=== PATIENT | female | born 1965 | race Caucasian/White ===

== ENCOUNTER 2017-08-28 06:34 | Day surgery (SDC) | payer BC ==
[~2017-08-28] VITALS: Ht 162.6 cm; Wt 65.8 kg
[2017-08-28] VITALS (8 sets, daily range): BP systolic 112–123; BP diastolic 60–75
--- NOTE | 2017-08-28 06:35 | Anethesia Preoperative Eval ---
Anesthesia Pre-op PMH/ROS General Date of Evaluation: Aug 28, 2017 Time of Evaluation: 06:34 Anesthesiologist: juan m ASA Score: ASA 3 Mallampati Score Class I : Soft palate, uvula, fauces, pillars visible Class II: Soft palate, uvula, fauces visible Class III: Soft palate, base of uvula visible Class IV: Only hard plate visible Mallampati Classification: Class II Surgeon: sixto Diagnosis: colon screening Surgical Procedure: colonoscopy Anesthesia History: none Social History: smoking Family History: no anesthesia problems Allergies: Coded Allergies: No Known Allergies (Unverified , 08/28/17) Medications: see eMAR Past Medical History Cardiovascular: Reports: HTN Gastrointestinal/Genitourinary: Reports: other - lmp 07/28/2017 Neurologic/Psychiatric: Reports: other - dizziness Anesthesia Pre-op Phys. Exam Physician Exam Last Vital Signs Date Time Temp Pulse Resp B/P (MAP) Pulse Ox O2 Delivery O2 Flow Rate FiO2 08/28/17 07:10 97.8 67 18 117/70 95 Room Air Constitutional: NAD Neurologic: CN 2-12 intact Cardiovascular: RRR Respiratory: CTA Gastrointestinal: S/NT/ND Airway Exam Mallampati Score: Class II MO: full Neck: supple TMD: 2fb ROM: full Teeth: intact Anesthesia Pre-op A/P Labs Labs Test 08/28/17 07:20 Urine HCG, Qualitative Negative Risk Assessment & Plan Assessment: asa3 Plan: mac Status Change Before Surgery: No Pre-Antibiotics Drug: DAVID Lewis Aug 28, 2017 06:35
[2017-08-28] MEDS ORDERED: NKM (07:15)
[2017-08-28] MEDS ORDERED: LR 1000ml 1,000 ML IVLG SCH (07:40)
[2017-08-28] MEDS ORDERED: DiphenhydrAMINE 50mg/ml Inj IVP PRN (07:45)
[2017-08-28] MEDS ORDERED: Atropine Inj 1mg/10ml Syr IV PRN (07:45)
[2017-08-28] MEDS ORDERED: fentaNYL 100 mcg/2 mL IV PRN (07:45)
[2017-08-28] MEDS ORDERED: Midazolam 2mg/2ml Inj IVP PRN (07:45)
[2017-08-28] MEDS ORDERED: Propofol 200mg/20ml IV ONE ×2 (07:50→08:00)
[2017-08-28] MEDS ORDERED: Lidocaine 1% MPF 10mg/ml 5ml ONE (08:00)
[2017-08-28] MEDS ORDERED: LR 1000ml ONE (08:00)
--- NOTE | 2017-08-28 08:14 | Short Stay Surgery H&P ---
History of Present Illness History of Present Illness Chief Complaint see H&P HPI Amina Steele is a 51 year old female who was admitted on for Colon Screening Patient History Allergies: Coded Allergies: No Known Allergies (Unverified , 08/28/17) PAST MEDICAL HISTORY: Past Surgeries: Social History: Medication History Scheduled No Known Medications* (NKM - No Known Medications*), 0 ., (Reported) Physical Exam Vital Signs Last Vital Signs Date Time Temp Pulse Resp B/P (MAP) Pulse Ox O2 Delivery O2 Flow Rate FiO2 08/28/17 07:10 97.8 67 18 117/70 95 Room Air Labs Laboratory Tests Test 08/28/17 07:20 Urine HCG, Qualitative Negative Plan Attestation Are the patient's medical conditions optimized for surgery? MARTHA JANG Aug 28, 2017 08:14
--- NOTE | 2017-08-28 08:14 | Pre-Procedure Note/Attestation ---
Pre-Procedure Note/Attestation Complete Prior to Procedure Planned Procedure: not applicable Procedure Narrative: colon Indications for Procedure Pre-Operative Diagnosis: screening Attestation I attest that I discussed the nature of the procedure; its benefits; risks and complications; and alternatives (and the risks and benefits of such alternatives ), prior to the procedure, with the patient (or the patient's legal uniforms sales representative). I attest that, if there was a reasonable possibility of needing a blood transfusion, the patient (or the patient's legal uniforms sales representative) was given the [facility] standardized written summary, pursuant to the [employer] Blood Safety Act ([place] Health and Safety Code # 1645, as amended). I attest that I re-evaluated the patient just prior to the surgery and that there has been no change in the patient's H&P, except as documented below: MARTHA JANG Aug 28, 2017 08:14
--- NOTE | 2017-08-28 09:19 | Endoscopy Procedure Note ---
Endoscopy Procedure Note Indication for Procedure: screen Procedures Performed: colonoscopy Operative Findings/Diagnosis: polyp vs inverted appy -bx, (L) sided polyps, (L) sied diverticulosis Specimen: yes Pt Tolerated Procedure Well: Yes Estimated Blood Loss: none Anesthesiologist: Seymour callejas, Anesthesia: MAC Medication Given: see anesthesia record Implant(s) used?: No 50 yrs or older w/o bx or poly: No 10yrs. F/U not recommended: No If not recommended, why?: Above average risk 10 yrs. F/U needed: No 18 years or older w/prev. colo: No <3yrs. since last colonoscopy: No Med reason:<3 yrs.: System Reason:<3 yrs.: Last colonoscopy >= to 3yrs: Yes MARTHA JAGN Aug 28, 2017 09:19
--- NOTE | 2017-08-28 09:21 | Immediate Post-Op Evaluation ---
Immediate Post-Op Evalulation Immediate Post-Op Evalulation Procedure: colonoscopy Date of Evaluation: Aug 28, 2017 Time of Evaluation: 09:21 IV Fluids: 350ml lr Blood Products: none Estimated Blood Loss: negligible Blood Pressure Systolic: 115 Blood Pressure Diastolic: 55 Pulse Rate: 62 Respiratory Rate: 18 O2 Sat by Pulse Oximetry: 99 Temperature (Fahrenheit): 98.1 Pain Score (1-10): 0 Nausea: No Vomiting: No Complications none Patient Status: awake, reacts, patent Hydration Status: adequate Drug: DAVID Lewis Aug 28, 2017 09:21
--- NOTE | 2017-08-28 09:23 | 48 Hour Post Anesthesia Eval ---
Post Anesthesia Evaluation Procedure: colonoscopy Date of Evaluation: Aug 28, 2017 Time of Evaluation: 09:23 Blood Pressure Systolic: 115 0: 55 Pulse Rate: 62 Respiratory Rate: 18 Temperature (Fahrenheit): 98.1 O2 Sat by Pulse Oximetry: 99 Airway: patent Nausea: No Vomiting: No Pain Intensity: 0 Hydration Status: adequate Cardiopulmonary Status: stable Post-Anesthesia Complications: none Follow-up care needed: N/A DAVID BETH Aug 28, 2017 09:23
--- NOTE | 2017-08-28 15:45 | Procedure Note ---
DATE OF PROCEDURE: 08/28/2017 GASTROENTEROLOGY PROCEDURE REPORT PROCEDURE: Screening colonoscopy with biopsy. SURGEON: Heavenly Smith M.D. ANESTHESIOLOGIST: Gladys Pacheco M.D. PRE-ENDOSCOPIC DIAGNOSIS: Screening. POST-ENDOSCOPIC DIAGNOSES: 1. Dasj-ih-rvyqexso sigmoid diverticulosis. 2. Polyp versus inverted appendix in periappendiceal region, status post careful biopsy. 3. Diminutive polyp in the descending colon, status post biopsy. 4. Diminutive polyp in the sigmoid colon at 25 cm, status post biopsy. DESCRIPTION OF PROCEDURE: The procedure, its risks, indications, alternatives, and possible complications including, but not limited to bleeding, infection, perforation, , and anesthesia complications were explained to the patient and an informed consent was obtained. The patient was then sedated in the left lateral decubitus position and a rectal exam was done. The colonoscope was then introduced into the rectum and advanced to the cecum without difficulty. The cecum was identified by the appearance of the ileocecal valve and appendiceal orifice. The colonoscope was then gradually withdrawn and the mucosa examined carefully. Examination of colonic mucosa revealed sessile polyp versus possibly an inverted appendix, which was emanating right next to the appendiceal orifice. This lesion was pushed a few times with the biopsy forceps gently to see if it invaginates and it had partial level of invagination, but not completely. As it was not clear whether this was a polyp or an inverted appendix, a very careful superficial biopsy from the mucosal level of this lesion was obtained x2 and sent to pathology for review. The lesion, however, was not removed. In the descending colon and sigmoid colon, there were diminutive polyps, which were removed with biopsy forceps. The sigmoid colon also had [id number] diverticulosis. Retroflexed view of the rectum was unremarkable. The colonoscope was removed, and the patient was sent to recovery in good condition. COMPLICATIONS: None. ASSESSMENT: This examination showed some diminutive polyps, which were removed. There was a larger polyp-like lesion measuring approximately 1 cm in the cecum, which could not be clearly identified as a polyp versus an appendiceal prolapse. Biopsies will be evaluated. Should there be adenomatous change, then the patient will have to undergo re-evaluation in the near future for polypectomy, likely using endoscopic mucosal resection technique. RECOMMENDATIONS: 1. Follow up biopsy results. 2. High-fiber diet. 3. Outpatient followup. Thank you for asking me to participate in the care of this patient. Heavenly Smith M.D. DR: KILO JOB#: [id number] CC: Kim Jeffrey M.D.
== END 2017-08-28 10:15 | disposition home or self-care (01) ==
LOC: GAS 06:34
DX: Z12.11 Encounter for screening for malignant neoplasm of colon (principal); K57.30 Diverticulosis of large intestine without perforation or abscess without bleeding; K63.5 Polyp of colon; I10 Essential (primary) hypertension
CPT/HCPCS: 45380; 81025; J2704; J7120; 94003; 94150